=== PATIENT | male | born 1985 | race Two or more races ===

== ENCOUNTER 2023-08-20 18:15 | Emergency (ER) | payer OTHER ==
[~2023-08-20] VITALS: Ht 177.8 cm; Wt 100.0 kg
[2023-08-20 18:24] VITALS: BP 118/73; PULSE 84; RESP 18; TEMP 98.2
[2023-08-20] MEDS ORDERED: BACITRACIN 0.9 GM PACKET OINTMENT TP ONE (21:15)
[2023-08-20] MEDS ORDERED: LIDOCAINE 1% 10 ML VIAL SQ ONE (21:15)
[2023-08-20] MEDS ORDERED: PERTUSS(ACELL),DIPH,TET VAC/PF 0.5 ML SYRINGE IM. ONE (21:15)
[2023-08-21] MEDS ORDERED: CEPH-558 PO (12:34)
== END 2023-08-20 22:31 | disposition home or self-care (01) ==
LOC: EMS 18:17
DX: S81.811A Laceration without foreign body, right lower leg, initial encounter (principal); W26.8XXA Contact with other sharp object(s), not elsewhere classified, initial encounter; Y93.89 Activity, other specified; Y92.89 Other specified places as the place of occurrence of the external cause; Y99.8 Other external cause status
CPT/HCPCS: 12002; 90471; 90715; 99283

== ENCOUNTER 2023-08-30 21:44 | Emergency (ER) | payer OTHER ==
[~2023-08-30] VITALS: Ht 180.3 cm; Wt 110.0 kg
[~2023-08-30 21:44] MED LIST: CEPH-558 PO
[2023-08-30 21:54] VITALS: BP 139/91; PULSE 89; RESP 15; TEMP 98.5
== END 2023-08-31 00:30 | disposition left against medical advice (07) ==
LOC: EMS 21:45
DX: Z53.21 Procedure and treatment not carried out due to patient leaving prior to being seen by health care provider (principal)
CPT/HCPCS: 99281; Z7502